=== PATIENT | female | born 1965 | race Caucasian/White ===

== ENCOUNTER 2023-01-17 17:29 | Emergency (ER) | payer OTHER ==
[~2023-01-17] VITALS: Ht 157.5 cm; Wt 49.0 kg
[2023-01-17 17:34] VITALS: TEMP 98.3; O2SAT 99
[2023-01-17 20:15] VITALS: BP 143/82; PULSE 91; RESP 18
[2023-01-17] MEDS ORDERED: METHOCARBAMOL 750MG TABLET PO SCH (20:15)
[2023-01-17] MEDS ORDERED: IBUPROFEN 600MG TABLET PO ONE (20:15)
[2023-01-17] MEDS ORDERED: METHOCARBAMOL 500MG TABLET PO NR (20:30)
== END 2023-01-17 22:48 | disposition home or self-care (01) ==
LOC: ER 17:29
DX: M54.2 Cervicalgia (principal); M25.511 Pain in right shoulder; M25.561 Pain in right knee; M25.562 Pain in left knee; Z98.890 Other specified postprocedural states
CPT/HCPCS: 73030; 73562; 99284